=== PATIENT | male | born 1955 | race Two or more races ===

== ENCOUNTER 2024-11-05 09:25 | Outpatient (AMB) | payer MEDICARE, OTHER, SELFPAY ==
[2024-11-05 09:44] VITALS: BP 144/79; PULSE 63; RESP 18; TEMP 36.2; O2SAT 98; BMI 28.7
--- NOTE | 2024-11-05 09:44 | PD.ORTHCLVIS ---
Vital signs 11/05/24 09:44 Height 1.85 m Height Method Measured Weight 98.628 kg Weight Measurement Method Standing Scale BMI 28.7 BP 144/79 H Blood Pressure Source Automatic Cuff Blood Pressure Location Left Upper Arm Position Sitting Respiration 18 Pulse 63 Pulse Source Monitor Temp 97.1 F Temp Source Temporal Artery Scan Pulse Oximetry (%) 98 Oxygen Delivery Method Room Air Med/Allergies Allergies & Medications Allergies meperidine (From Demerol) Allergy (Verified 11/05/24 09:46) Penicillins Allergy (Verified 11/05/24 09:46) Medication Reconciliation allopurinol 100 mg tablet 100 mg PO QDAY 11/05/24 [History Confirmed 11/05/24] aspirin 81 mg tablet 81 mg PO QDAY 11/05/24 [History Confirmed 11/05/24] baclofen 10 mg tablet 10 mg PO BID 11/05/24 [History Confirmed 11/05/24] benazepril 40 mg tablet 40 mg PO QDAY 11/05/24 [History Confirmed 11/05/24] cetirizine 10 mg tablet (Zyrtec) 10 mg PO QDAY PRN 11/05/24 [History Confirmed 11/05/24] meloxicam 7.5 mg tablet 7.5 mg PO QDAY #45 tabs 11/05/24 [Rx Confirmed 11/05/24] pantoprazole 40 mg tablet,delayed release (Protonix) 40 mg PO QDAY 11/05/24 [History Confirmed 11/05/24] rosuvastatin 10 mg tablet 10 mg PO QDAY 11/05/24 [History Confirmed 11/05/24] spironolactone 25 mg tablet 25 mg PO QDAY 11/05/24 [History Confirmed 11/05/24] zolpidem 10 mg tablet 10 mg PO QHS 11/05/24 [History Confirmed 11/05/24] Exam Exam Breathing is nonlabored. Patient has a normal mood and affect. Bilateral extremities were evaluated and demonstrates sensation intact to light touch. Palpable pedal pulses are present. No significant edema is present. Bilateral hips were examined. The patient has no pain with log roll of the hips. Internal rotation to 30 degrees and external rotation to 30 degrees is painless. Negative FADIR. Left knee was examined today. The left knee is in reasonable alignment. Range of motion from 0-120 degrees. Knee is stable to varus and valgus as well as AP translation with <5mm. Patient has a negative McMurrays. There is no pain with patellofemoral compression and no crepitus noted. The knee is nontender to palpation. The right knee was also examined. The right knee is in neutral alignment. Range of motion from 0-115 degrees. Knee is stable to varus and valgus as well as AP translation with <5mm. The knee is tender to palpation laterally. Assessment and Plan Problem List (1) Pain in right knee: Status: Acute Plan: Patient is a pleasant 69-year-old male with right knee pain after injury 2 days ago. This occurred after stepping and planting funny going downstairs. He is using crutches and is difficult to bear weight. He has tried ibuprofen. We had him get new x-rays in the office today. He is tender to palpation laterally and I do think that he likely has a lateral meniscus tear. He reports the pain is excruciating and the knee is swollen. He would like a cortisone injection today Recommend knee cortisone injection as patient would like to proceed with conservative treatment at this time. The risks and benefits of the procedure were reviewed with the patient and patient gave verbal consent to continue with the procedure. Procedure: performed by Dr. Denson Using sterile technique the Right knee was thoroughly prepped with alcohol, and approximately 1 cc of Depo-Medrol 80mg/mL and 4 cc of 0.2% ropivacaine was injected without resistance into the medial tibial femoral joint space. The patient tolerated the procedure. Advanced Care Planning Discussion Advance care planning discussed with:: patient Office Procedures GNS Level of Care Nursing/Assessment Patient Status: Initial/New Patient Nursing Assessment/Reassesment: Medication Reconciliation, Update PMH in EMR and Vital Signs Coordination of Care: Complex Care and Chronic Disease 1-5, Education Complex Pt/Fam, Consent,records obtained, informed consent, Lab and Imaging orders, Results/Orders obtained and Staff clarify orders New Patient Charge New Patient Point Assignment: [id number] New Patient Point Charge: TRESTLE MECHANIC Level 3 (4751-3824) Surgical Proc/IM SQ injection Major Surgical Procedure: Yes (KNEE INJECTION) Medication Given Medication Given Medication Given: Yes Documented Dose Given: 1 Route: Infiitration Medication Given Medication Given Medication Given: Yes Documented Dose Given: 4 Route: Infiitration Office Meds methylprednisolone acetate 80 mg/mL suspension for injection Performing Provider: Sree Denson MD Performing Location: [facility] Administered by: Sree Denson MD on 11/05/24 10:50 Dose Route Admin Location Dispensed Lot Number Expiration Date [facility] Thread Milling Machine Set Up Operator 80 mg intra-articular KEEE 1 mL [id number] 08/31/26 [address]-1 [employer] ropivacaine (PF) 2 mg/mL (0.2 %) injection solution Performing Provider: Sree Denson MD Performing Location: [facility] Administered by: Sree Denson MD on 11/05/24 10:50 Dose Route Admin Location Dispensed Lot Number Expiration Date [facility] Thread Milling Machine Set Up Operator 20 mL Infiltration KNEE 20 mL [id number] 01/31/26 06048-254-64 [facility] Intake Visit Data Collection New Patient or Established: New Patient (never been to [facility]) Reason for Visit:: RIGHT KNEE PAIN Seen by Clinical Staff ONLY (RN/MA): No Sfdc Developer Required: No PCP or OBGYN visit in last 3 months: Yes Hx Now: No Do You Feel Safe at Home: Yes Authorities Contacted: N/A Questionairres Past Medical History Past Medical History Have you ever been diagnosed with any of the following: Subjective Visit Visit for: new patient and knee Immunization / Flu Flu Vaccine in the Last 12 Months: Yes Flu Vaccine Exclusion Criteria: Already Received History of Present Illness Chief complaint: RIGHT KNEE PAIN Date of injury / onset of symptoms: 11/02/2024 Patient is a 69-year-old male with right knee pain that started Monday night after planting awkwardly going downstairs. Right knee pain primarily lateral aspect of his knee. He has tried ibuprofen. He has no x-rays. Has not had any injections or any treatment. Personal History Occupation: RETIRED Red flag PMH: none BMI Counceling provided: No Pain Pain level (0-10): 10 Pain location: outside (lateral) and anterior Pain quality: sharp Pain timing: increases with activity Associated signs & symptoms: stiffness Ambulatory data Ambulatory device: other (specify) (CRUTCHES) Treatments Improvement with previous injections: No Improvement with PT: No Improvement with NSAIDS: no Review of Systems Review of Systems: All systems negative unless otherwise noted in HPI.
--- NOTE | 2024-11-05 09:48 | XR_ITS ---
Examination: Bilateral AP knees single view Right knee PA lateral axial 3 views TECHNIQUE: Bilateral AP knees standing single view Right knee PA flexion standing, lateral standing, axial 3 views total 4 views Date and time: November 05, 2024 1017 hours INDICATIONS: Right knee weakness and instability beginning 3 days ago. FINDINGS: Mild osteopenia. Mild narrowing medial lateral and right patellofemoral joints Small knee effusion No fractures Mild narrowing medial joint space left knee IMPRESSION: Mild narrowing medial lateral and right patellofemoral joints
== END 2024-11-05 11:02 | disposition home or self-care (01) ==
PROVIDERS: Supervising Provider Orthopaedic Surgery Adult Reconstructive Orthopaedic Surgery; Visit Provider Orthopaedic Surgery Adult Reconstructive Orthopaedic Surgery
DX: M25.561 Pain in right knee (principal); S89.91XA Unspecified injury of right lower leg, initial encounter; M25.861 Other specified joint disorders, right knee; X50.0XXA Overexertion from strenuous movement or load, initial encounter
CPT/HCPCS: 20610; 73564; 99203; J1010; J2795; G0463

== ENCOUNTER 2024-12-19 08:57 | Outpatient (AMB) | payer MEDICARE, OTHER, SELFPAY ==
--- NOTE | 2024-12-19 09:16 | ORTHONT_ITS ---
Vital signs 12/19/24 09:17 Height 1.85 m Height Method Stated Weight 98.515 kg Weight Measurement Method Standing Scale BMI 28.8 BP 128/63 Blood Pressure Source Automatic Cuff Blood Pressure Location Left Upper Arm Position Sitting Respiration 18 Pulse 52 L Pulse Source Monitor Temp 97.7 F Temp Source Temporal Artery Scan Pulse Oximetry (%) 96 Oxygen Delivery Method Room Air Med/Allergies Allergies & Medications Allergies meperidine (From Demerol) Allergy (Verified 12/19/24 09:18) Penicillins Allergy (Verified 12/19/24 09:18) Medication Reconciliation allopurinol 100 mg tablet 100 mg PO QDAY 11/05/24 [History Confirmed 12/19/24] aspirin 81 mg tablet 81 mg PO QDAY 11/05/24 [History Confirmed 12/19/24] baclofen 10 mg tablet 10 mg PO BID 11/05/24 [History Confirmed 12/19/24] benazepril 40 mg tablet 40 mg PO QDAY 11/05/24 [History Confirmed 12/19/24] cetirizine 10 mg tablet (Zyrtec) 10 mg PO QDAY PRN 11/05/24 [History Confirmed 12/19/24] meloxicam 7.5 mg tablet 7.5 mg PO QDAY #45 tabs 11/05/24 [Rx Confirmed 12/19/24] pantoprazole 40 mg tablet,delayed release (Protonix) 40 mg PO QDAY 11/05/24 [History Confirmed 12/19/24] rosuvastatin 10 mg tablet 10 mg PO QDAY 11/05/24 [History Confirmed 12/19/24] spironolactone 25 mg tablet 25 mg PO QDAY 11/05/24 [History Confirmed 12/19/24] zolpidem 10 mg tablet 10 mg PO QHS 11/05/24 [History Confirmed 12/19/24] Exam Exam Breathing is nonlabored. Patient has a normal mood and affect. Bilateral extremities were evaluated and demonstrates sensation intact to light touch. Palpable pedal pulses are present. No significant edema is present. Bilateral hips were examined. The patient has no pain with log roll of the hips. Internal rotation to 30 degrees and external rotation to 30 degrees is painless. Negative FADIR. Left knee was examined today. The left knee is in reasonable alignment. Range of motion from 0-120 degrees. Knee is stable to varus and valgus as well as AP translation with <5mm. Patient has a negative McMurrays. There is no pain with patellofemoral compression and no crepitus noted. The knee is nontender to palpation. The right knee was also examined. The right knee is in neutral alignment. Range of motion from 0-115 degrees. Knee is stable to varus and valgus as well as AP translation with <5mm. The knee is tender to palpation laterally X-rays of the right knee demonstrate mild to moderate arthritis Assessment and Plan Problem List (1) Pain in right knee: Status: Acute Plan: Patient is a pleasant 69-year-old male with right knee pain after an injury where he stepped awkwardly going downstairs. He has had an injection at the last visit and reports the pain is significantly better. We will see the patient back in approximately 6 weeks for a repeat injection likely. He is doing well Advanced Care Planning Discussion Advance care planning discussed with:: patient Office Procedures GNS Level of Care Nursing/Assessment Patient Status: Established Patient Nursing Assessment/Reassesment: Medication Reconciliation, Update PMH in EMR and Vital Signs Coordination of Care: Complex Care and Chronic Disease 1-5, Education Complex Pt/Fam, Consent,records obtained, informed consent, Results/Orders obtained and Staff clarify orders Established Patient Charge Established Patient Point Assignment: 95 Established Patient Point Charge: EP Level 3 (80-115) MA Intake Visit Data Collection New Patient or Established: Established Patient (seen at [facility] within 3 years) Reason for Visit:: RIGHT KNEE PAIN/FU INJ Seen by Clinical Staff ONLY (RN/MA): No Merchandise Adjustment Clerk Required: No PCP or OBGYN visit in last 3 months: Yes Hx Now: No Do You Feel Safe at Home: Yes Authorities Contacted: N/A Questionairres Past Medical History Past Medical History Have you ever been diagnosed with any of the following: Subjective Visit Visit for: follow up visit, knee and injections Immunization / Flu Flu Vaccine in the Last 12 Months: Yes Flu Vaccine Exclusion Criteria: Already Received History of Present Illness Chief complaint: RIGHT KNEE PAIN Date of injury / onset of symptoms: NIGHT 11/02/2024 Patient is a 69-year-old male with right knee pain that started Monday night after planting awkwardly going downstairs. Right knee pain primarily lateral aspect of his knee. He has tried ibuprofen. he is doing well since his last cortisone injection. The pain is significantly better Personal History Occupation: RETIRED Red flag PMH: none BMI Counceling provided: No Pain Pain level (0-10): 1 Pain duration: WITH MOVEMENT Pain location: outside (lateral) Pain quality: sharp Pain timing: increases with activity Associated signs & symptoms: stiffness Ambulatory data Ambulatory device: none Treatments Number of previous injections: 1 Improvement with previous injections: Yes Improvement with PT: No Improvement with NSAIDS: no Review of Systems Review of Systems: All systems negative unless otherwise noted in HPI.
[2024-12-19 09:17] VITALS: BP 128/63; PULSE 52; RESP 18; TEMP 36.5; O2SAT 96; BMI 28.8
== END 2024-12-19 09:32 | disposition home or self-care (01) ==
LOC: HODSRG 08:57
PROVIDERS: Supervising Provider Orthopaedic Surgery Adult Reconstructive Orthopaedic Surgery; Visit Provider Orthopaedic Surgery Adult Reconstructive Orthopaedic Surgery
DX: M25.561 Pain in right knee (principal); S89.91XD Unspecified injury of right lower leg, subsequent encounter; X50.9XXD Other and unspecified overexertion or strenuous movements or postures, subsequent encounter
CPT/HCPCS: 99213; G0463

== ENCOUNTER 2025-01-21 08:21 | Outpatient (AMB) | payer MEDICARE, OTHER, SELFPAY ==
--- NOTE | 2025-01-21 08:29 | ORTHONT_ITS ---
Vital signs 01/21/25 08:30 Height 1.85 m Height Method Measured Weight 99.082 kg Weight Measurement Method Standing Scale BMI 28.9 BP 129/76 Blood Pressure Source Automatic Cuff Blood Pressure Location Left Upper Arm Position Sitting Respiration 18 Pulse 63 Pulse Source Monitor Temp 97.3 F Temp Source Temporal Artery Scan Pulse Oximetry (%) 96 Oxygen Delivery Method Room Air Med/Allergies Allergies & Medications Allergies meperidine (From Demerol) Allergy (Verified 01/21/25 08:31) Penicillins Allergy (Verified 01/21/25 08:31) Medication Reconciliation allopurinol 100 mg tablet 100 mg PO QDAY 11/05/24 [History Confirmed 01/21/25] aspirin 81 mg tablet 81 mg PO QDAY 11/05/24 [History Confirmed 01/21/25] baclofen 10 mg tablet 10 mg PO BID 11/05/24 [History Confirmed 01/21/25] benazepril 40 mg tablet 40 mg PO QDAY 11/05/24 [History Confirmed 01/21/25] cetirizine 10 mg tablet (Zyrtec) 10 mg PO QDAY PRN 11/05/24 [History Confirmed 01/21/25] meloxicam 7.5 mg tablet 7.5 mg PO QDAY #45 tabs 11/05/24 [Rx Confirmed 01/21/25] pantoprazole 40 mg tablet,delayed release (Protonix) 40 mg PO QDAY 11/05/24 [History Confirmed 01/21/25] rosuvastatin 10 mg tablet 10 mg PO QDAY 11/05/24 [History Confirmed 01/21/25] spironolactone 25 mg tablet 25 mg PO QDAY 11/05/24 [History Confirmed 01/21/25] zolpidem 10 mg tablet 10 mg PO QHS 11/05/24 [History Confirmed 01/21/25] Exam Exam Breathing is nonlabored. Patient has a normal mood and affect. Bilateral extremities were evaluated and demonstrates sensation intact to light touch. Palpable pedal pulses are present. No significant edema is present. Bilateral hips were examined. The patient has no pain with log roll of the hips. Internal rotation to 30 degrees and external rotation to 30 degrees is painless. Negative FADIR. Left knee was examined today. The left knee is in reasonable alignment. Range of motion from 0-120 degrees. Knee is stable to varus and valgus as well as AP translation with <5mm. Patient has a negative McMurrays. There is no pain with patellofemoral compression and no crepitus noted. The knee is nontender to palpation. The right knee was also examined. The right knee is in neutral alignment. Range of motion from 0-115 degrees. Knee is stable to varus and valgus as well as AP translation with <5mm. The knee is tender to palpation laterally X-rays of the right knee demonstrate mild to moderate arthritis Assessment and Plan Problem List (1) Pain in right knee: Status: Acute Plan: Patient is a pleasant 69-year-old male with right knee pain after an injury where he stepped awkwardly going downstairs. He has had an injection at the last visit and reports the pain is significantly better. He would like a repeat injection today Recommend knee cortisone injection as patient would like to proceed with conservative treatment at this time. The risks and benefits of the procedure were reviewed with the patient and patient gave verbal consent to continue with the procedure. Procedure: performed by Dr. Denson Using sterile technique the Right knee was thoroughly prepped with alcohol, and approximately 1 cc of Depo-Medrol 80mg/mL and 4 cc of 0.2% ropivacaine was injected without resistance into the medial tibial femoral joint space. The patient tolerated the procedure. Advanced Care Planning Discussion Advance care planning discussed with:: patient Office Procedures GNS Level of Care Nursing/Assessment Patient Status: Established Patient Nursing Assessment/Reassesment: Medication Reconciliation, Update PMH in EMR and Vital Signs Coordination of Care: Complex Care and Chronic Disease 1-5, Education Complex Pt/Fam, Consent,records obtained, informed consent, Results/Orders obtained and Staff clarify orders Established Patient Charge Established Patient Point Assignment: 95 Established Patient Point Charge: EP Level 3 (80-115) Surgical Proc/IM SQ injection Minor Surgical Procedure: Yes (KNEE INJECTION ) Medication Given Medication Given Medication Given: Yes Documented Dose Given: 1 Route: Infiitration Medication Given Medication Given Medication Given: Yes Documented Dose Given: 4 Route: Infiitration Office Meds methylprednisolone acetate 80 mg/mL suspension for injection Performing Provider: Sree Denson MD Performing Location: [facility] Administered by: Sree Denson MD on 01/21/25 09:05 Dose Route Admin Location Dispensed Lot Number Expiration Date Pack age [facility] Cable Tool Operator 80 mg intra-articular KNEE 1 mL [id number] 09/30/26 [address]-9 7 [id number] [employer] ropivacaine (PF) 2 mg/mL (0.2 %) injection solution Performing Provider: Sree Denson MD Performing Location: [facility] Administered by: Sree Denson MD on 01/21/25 09:05 Dose Route Admin Location Dispensed Lot Number Expiration Date Pack age [facility] Cable Tool Operator 20 mL Infiltration KNEE 20 mL [id number] 05/03/27 71845-359-69 [id number] [facility] Intake Visit Data Collection New Patient or Established: Established Patient (seen at [facility] within 3 years) Reason for Visit:: RIGHT KNEE PAIN/FU INJ Seen by Clinical Staff ONLY (RN/MA): No Bingo Caller Required: No PCP or OBGYN visit in last 3 months: Yes Hx Now: No Do You Feel Safe at Home: Yes Authorities Contacted: N/A Questionairres Past Medical History Past Medical History Have you ever been diagnosed with any of the following: Subjective Visit Visit for: follow up visit, knee and injections Immunization / Flu Flu Vaccine in the Last 12 Months: Yes Flu Vaccine Exclusion Criteria: Already Received History of Present Illness Chief complaint: RIGHT KNEE PAIN Date of injury / onset of symptoms: 11/02/2024 Patient is a 69-year-old male with right knee pain that started Monday night after planting awkwardly going downstairs. Right knee pain primarily lateral aspect of his knee. He has tried ibuprofen. he is doing well since his last cortisone injection. The pain is significantly better but has increased over the last 1 to 2 weeks. Personal History Occupation: RETIRED Red flag PMH: none BMI Counceling provided: No Pain Pain level (0-10): 1 Pain duration: WITH MOVEMENT Pain location: outside (lateral) Pain quality: sharp Pain timing: increases with activity Associated signs & symptoms: stiffness Ambulatory data Ambulatory device: none Treatments Number of previous injections: 1 Improvement with previous injections: Yes Improvement with PT: No Improvement with NSAIDS: no Review of Systems Review of Systems: All systems negative unless otherwise noted in HPI.
[2025-01-21 08:30] VITALS: BP 129/76; PULSE 63; RESP 18; TEMP 36.3; O2SAT 96; BMI 28.9
== END 2025-01-21 08:53 | disposition home or self-care (01) ==
LOC: HODSRG 08:21
PROVIDERS: Supervising Provider Orthopaedic Surgery Adult Reconstructive Orthopaedic Surgery; Visit Provider Orthopaedic Surgery Adult Reconstructive Orthopaedic Surgery
DX: M25.561 Pain in right knee (principal); S89.91XD Unspecified injury of right lower leg, subsequent encounter; X50.9XXD Other and unspecified overexertion or strenuous movements or postures, subsequent encounter
CPT/HCPCS: 20610; 99213; J1010; J2795; G0463